=== PATIENT | male | born 1985 | race Caucasian/White ===

== ENCOUNTER 2021-11-06 14:27 | Emergency (ER) | payer MEDICAID, OTHER ==
[~2021-11-06] VITALS: Ht 190.5 cm; Wt 131.5 kg
[~2021-11-06 14:27] MED LIST: CANNABIS
[2021-11-06 15:01] VITALS: BP 136/80
--- NOTE | 2021-11-06 15:01 | NUR ---
36 y/o male, pt presents with c/o left ear and eye pain that started 4 days ago. 5 days ago pt was dx with syphilis by pcp. pt states that he would like to be treated for and screen he does endorse risky sexual behavior which she does not use any barrier methods. denies any blurred vision he states mucopurulent drainage throughout the day in which he has to clean it off frequently he denies any diplopia or loss of vision pmh: syphilis nka med: denies
[2021-11-06] MEDS: TETRACAINE HCL/PF 0.5% OPTH 4 ML BTL OP ONE (17:05)
[2021-11-06] MEDS ORDERED: TETRACAINE HCL/PF 0.5% OPTH 4 ML BTL ONE (18:36)
[2021-11-06] MEDS ORDERED: FLUORESCEIN OPTH STRIP 1 MG ONE (18:36)
[2021-11-06] MEDS: FLUORESCEIN OPTH STRIP 1 MG OP ONE (18:37)
[2021-11-06] MEDS ORDERED: [UNRECOGNIZED DRUG - CODE] PO (18:47)
[2021-11-06] MEDS ORDERED: ERYT5OIN51 OP (18:47)
[2021-11-06] MEDS ORDERED: AMOX1TAB8 PO (18:47)
[2021-11-06] MEDS ORDERED: CIPR7.5S OT (18:47)
[2021-11-06] MEDS ORDERED: cefTRIAXone 500 MG VIAL ONE (19:22)
[2021-11-06] MEDS ORDERED: PENICILLIN G BENZATHINE L-A 1.2 MU/2 ML SYR IM ONE ×2 (19:24→19:26)
[2021-11-06] MEDS ORDERED: LIDOCAINE MPF 1% 5 ML ONE (19:25)
[2021-11-06] MEDS: cefTRIAXone 500 MG in LIDOCAINE MPF 1% 1 ML IM ONE (19:34)
[2021-11-06] MEDS: PENICILLIN G BENZATHINE L-A 1.2 MU/2 ML SYR IM ONE (19:35)
[2021-11-06 19:44] VITALS: BP 130/80
--- NOTE | 2021-11-06 19:44 | NUR ---
Patient discharged with v/s stable. Written and verbal after care instructions FOR OTITIS MEDIA , SAFE SEX AND BACTERIAL CONJUCTIVITIS given and explained. Patient alert, oriented and verbalized understanding of instructions. Ambulatory with steady gait. All questions addressed prior to discharge. ID band removed. Patient advised to follow up with PMD. Rx of AMOXICILLIN, CIPRODEX , DOXYCYCLINE BASE ANS ERYHTHROMYCIN given. . Opportunity to ask questions provided and answered.
[2021-11-07] MEDS ORDERED: CIPR7.5S OT (19:12)
[2021-11-07] MEDS ORDERED: AMOX1TAB8 PO (19:12)
[2021-11-07] MEDS ORDERED: [UNRECOGNIZED DRUG - CODE] PO (19:12)
[2021-11-07] MEDS ORDERED: ERYT5OIN51 OP (19:12)
== END 2021-11-06 19:44 | disposition home or self-care (01) ==
LOC: MED 14:27
DX: H60.91 Unspecified otitis externa, right ear (principal); H10.9 Unspecified conjunctivitis; I25.2 Old myocardial infarction; Z11.3 Encounter for screening for infections with a predominantly sexual mode of transmission; Z79.899 Other long term (current) drug therapy; Z86.718 Personal history of other venous thrombosis and embolism
CPT/HCPCS: 81002; 86592; 87491; 96372; 99284; J0561; J0696; J2001

== ENCOUNTER 2023-09-25 22:33 | Emergency (ER) | payer MEDICAID, OTHER ==
[~2023-09-25] VITALS: Ht 190.5 cm; Wt 127.0 kg
[~2023-09-25 22:33] MED LIST changes: +AMOX1TAB8 PO; +CIPR7.5S OT; +ERYT5OIN51 OP; +[UNRECOGNIZED DRUG - CODE] PO
[2023-09-25 22:44] VITALS: BP 140/86; PULSE 88; RESP 20; TEMP 97.4; O2SAT 100
[2023-09-25] MEDS ORDERED: IBUP-2213 PO (23:24)
[2023-09-25] MEDS ORDERED: CEPH-588 PO (23:24)
[2023-09-25] MEDS ORDERED: BACI-418 TP (23:24)
[2023-09-25] MEDS: cephALEXin 500 MG CAP PO ONE (23:32)
[2023-09-25] MEDS: IBUPROFEN 600 MG TAB PO ONE (23:32)
[2023-09-25] MEDS: BACITRACIN OINT 500 UNITS/GM PKT TP ONE (23:36)
[2023-09-25 23:47] VITALS: BP 140/86; PULSE 88; RESP 20; TEMP 97.4; O2SAT 100
== END 2023-09-25 23:47 | disposition home or self-care (01) ==
LOC: MED 22:33
DX: S90.31XA Contusion of right foot, initial encounter (principal); S80.811A Abrasion, right lower leg, initial encounter; L03.115 Cellulitis of right lower limb; Z79.899 Other long term (current) drug therapy; W05.1XXA Fall from non-moving nonmotorized scooter, initial encounter; Y93.89 Activity, other specified; Y92.410 Unspecified street and highway as the place of occurrence of the external cause; Y99.8 Other external cause status
CPT/HCPCS: 99284

== ENCOUNTER 2023-10-27 12:39 | Emergency (ER) | payer MEDICAID ==
[~2023-10-27] VITALS: Ht 182.9 cm; Wt 127.0 kg
[~2023-10-27 12:39] MED LIST changes: +BACI-418 TP; +CEPH-588 PO; +IBUP-2213 PO
[2023-10-27 12:46] VITALS: BP 138/88; PULSE 54; RESP 22; TEMP 98.2; O2SAT 97
== END 2023-10-27 14:23 | disposition left against medical advice (07) ==
LOC: MED 12:39
DX: R11.2 Nausea with vomiting, unspecified (principal); R10.9 Unspecified abdominal pain; Z53.21 Procedure and treatment not carried out due to patient leaving prior to being seen by health care provider